=== PATIENT | female | born 1960 | race Caucasian/White ===

== ENCOUNTER 2018-07-18 11:55 | Inpatient (IN) | payer OTHER ==
[2018-07-18 12:20] LABS: ADD MAN DIFF? NO
[2018-07-18 12:21] LABS: WHITE BLOOD COUNT 14.9 10^3/ul (4.8-10.8)
[2018-07-18 12:21] LABS: ABNORMAL IP MESSAGE 1; BASOPHIL # 0.1 10^3/ul (0.0-0.1); BASOPHILS % 0.6 % (0.0-2.0); EOSINOPHILS # 0.2 10^3/ul (0.0-0.5); EOSINOPHILS % 1.6 % (0.0-7.0); HEMATOCRIT 47.5 % (37.0-47.0); HEMOGLOBIN 16.5 g/dl (12.0-16.0); LYMPHOCYTES # 1.5 10^3/ul (0.8-2.9); LYMPHOCYTES % 10.3 % (15.0-51.0); MEAN CORPUSCULAR HEMOGLOBIN 31.7 pg (29.0-33.0); MEAN CORPUSCULAR HGB CONC 34.7 g/dl (32.0-37.0); MEAN CORPUSCULAR VOLUME 91.2 fl (82.0-101.0); MONOCYTE # 1.7 10^3/ul (0.3-0.9); MONOCYTES % 11.1 % (0.0-11.0); NEUTROPHIL # 11.3 10^3/ul (1.6-7.5); NEUTROPHILS % 75.6 % (39.0-77.0); PLATELET COUNT 324 10^3/UL (140-415); RED BLOOD COUNT 5.21 10^6/ul (4.20-5.40); RED CELL DISTRIBUTION WIDTH 12.9 % (11.5-14.5)
[2018-07-18 12:22] LABS: POSITIVE DIFF @See below
[2018-07-18 12:32] LABS: HEMOGLOBIN A1C 13.5 % (0-5.9)
[2018-07-18 12:39] LABS: ALANINE AMINOTRANSFERASE 19 IU/L (13-69); ALBUMIN 4.6 g/dl (3.3-4.9); ALBUMIN/GLOBULIN RATIO 1.35; ALKALINE PHOSPHATASE 75 IU/L (42-121); ANION GAP 11 (5-13); ASPARTATE AMINO TRANSFERASE 15 IU/L (15-46); BILIRUBIN,INDIRECT 0.8 mg/dl (0-1.1); BILIRUBIN,TOTAL 0.8 mg/dl (0.2-1.3); BLOOD UREA NITROGEN 20 mg/dl (7-20); CALCIUM 10.3 mg/dl (8.4-10.2); CARBON DIOXIDE 19 mmol/L (21-31); CHLORIDE 105 mmol/L (97-110); CHOL/HDL RATIO 2.6 RATIO; CHOLESTEROL 136 mg/dl (100-200); CREATINE KINASE 49 IU/L (23-200); CREATININE 1.47 mg/dl (0.44-1.00); ETHANOL < 10.0 mg/dl (0-0); Estimated GFR 37 mL/min (>60); GLUCOSE 148 mg/dl (70-220); HDL CHOLESTEROL 52 mg/dl (37-92); LDL CHOLESTEROL,CALCULATED 57 mg/dl; POTASSIUM 3.8 mmol/L (3.5-5.1); SODIUM 135 mmol/L (135-144); TRIGLYCERIDES 137 mg/dl (0-149)
[2018-07-18 12:41] LABS: INR 0.91; PROTIME 12.4 Sec (11.9-14.9)
[2018-07-18 12:42] LABS: PARTIAL THROMBOPLASTIN TIME 28.1 Sec (23.0-35.0)
[2018-07-18 12:50] LABS: CK-MB 0.98 ng/ml (0.0-2.4); TROPONIN-I 0.026 ng/ml (0.000-0.120)
[2018-07-18] MEDS: SOD CHLORIDE 0.9% 1,000 ML IV ×2 (13:37)
[2018-07-18] MEDS: SOD CHLORIDE 0.9% 100 ML (13:38)
[2018-07-18] MEDS: IODIXANOL LOCM 100 ML BTL (13:38)
[2018-07-18] MEDS: ASPIRIN 81 MG TAB PO (14:54)
[2018-07-18] MEDS ORDERED: DOCUSATE SODIUM 100 MG CAP PO (15:30)
[2018-07-18] MEDS ORDERED: ZOLPIDEM 5 MG TAB PO (15:30)
[2018-07-18] MEDS ORDERED: HYDROCODONE/APAP (5/325) TAB PO (15:30)
[2018-07-18] MEDS ORDERED: ACETAMINOPHEN 325 MG TAB PO (15:30)
[2018-07-18] MEDS ORDERED: NACL 0.9% 3 ML SYG IV (15:30)
[2018-07-18] MEDS ORDERED: ONDANSETRON 4 MG INJ IV ×2 (15:30)
[2018-07-18] MEDS ORDERED: GLUCAGON 1 MG INJ IM (17:00)
[2018-07-18] MEDS ORDERED: morphine LIQ (10 MG/5 ML) CUP PO (17:00)
[2018-07-18] MEDS ORDERED: GLUCOSE GEL 15 GRAM TUBE BUCCAL (17:00)
[2018-07-18] MEDS ORDERED: DEXTROSE 50% 50 ML SYRINGE IV ×2 (17:00)
[2018-07-18] MEDS ORDERED: GLUCOSE GEL 15 GRAM TUBE PO ×2 (17:00)
[2018-07-18] MEDS: INSULIN ASPART [NOVOLOG] 3 ML PEN SC ×3 (18:00→20:58)
[2018-07-18] MEDS: CLOPIDOGREL 75 MG TAB PO (18:30)
[2018-07-18] MEDS: ATORVASTATIN 80 MG TAB PO (20:50)
[2018-07-18] MEDS: INSULIN GLARGINE [LANTus] (100 UNITS/ML) SYG SC (20:53)
[2018-07-19] MEDS: ACCU-CHEK XX (02:00)
[2018-07-19] MEDS: ACETAMINOPHEN 325 MG TAB PO (05:01)
[2018-07-19 05:15] LABS: ADD MAN DIFF? NO
[2018-07-19 05:19] LABS: BASOPHIL # 0.1 10^3/ul (0.0-0.1); BASOPHILS % 0.7 % (0.0-2.0); EOSINOPHILS # 0.3 10^3/ul (0.0-0.5); HEMATOCRIT 43.2 % (37.0-47.0); HEMOGLOBIN 14.8 g/dl (12.0-16.0); LYMPHOCYTES # 1.2 10^3/ul (0.8-2.9); LYMPHOCYTES % 17.8 % (15.0-51.0); MEAN CORPUSCULAR HEMOGLOBIN 31.2 pg (29.0-33.0); MEAN CORPUSCULAR HGB CONC 34.3 g/dl (32.0-37.0); MEAN CORPUSCULAR VOLUME 91.1 fl (82.0-101.0); MEAN PLATELET VOLUME 10.3 fl (7.4-10.4); MONOCYTE # 0.8 10^3/ul (0.3-0.9); NEUTROPHIL # 4.3 10^3/ul (1.6-7.5); NEUTROPHILS % 65.1 % (39.0-77.0); PLATELET COUNT 261 10^3/UL (140-415); RED BLOOD COUNT 4.74 10^6/ul (4.20-5.40); RED CELL DISTRIBUTION WIDTH 13.1 % (11.5-14.5)
[2018-07-19 05:19] LABS: WHITE BLOOD COUNT 6.7 10^3/ul (4.8-10.8)
[2018-07-19 05:39] LABS: ANION GAP 15 (5-13); BLOOD UREA NITROGEN 18 mg/dl (7-20); CALCIUM 9.5 mg/dl (8.4-10.2); CARBON DIOXIDE 18 mmol/L (21-31); CHLORIDE 104 mmol/L (97-110); CHOL/HDL RATIO 2.7 RATIO; CHOLESTEROL 110 mg/dl (100-200); CREATININE 0.57 mg/dl (0.44-1.00); Estimated GFR > 60 mL/min (>60); GLUCOSE 128 mg/dl (70-220); HDL CHOLESTEROL 40 mg/dl (37-92); LDL CHOLESTEROL,CALCULATED 44 mg/dl; MAGNESIUM 1.7 mg/dl (1.7-2.5); PHOSPHORUS 4.1 mg/dl (2.5-4.9); POTASSIUM 3.2 mmol/L (3.5-5.1); SODIUM 137 mmol/L (135-144); TRIGLYCERIDES 129 mg/dl (0-149)
[2018-07-19 05:54] LABS: FREE THYROXINE INDEX (Calc) 3.25 ug/ml (0.65-3.89); T3 UPTAKE 37.3 % (23.5-40.5); T4 (THYROXINE) 8.7 ug/dl (5.5-11.0)
[2018-07-19] MEDS: POTASSIUM CHLORIDE (SR) 20 MEQ TAB PO (06:22)
[2018-07-19] MEDS: CLOPIDOGREL 75 MG TAB PO (08:59)
[2018-07-19] MEDS: ASPIRIN 81 MG TAB PO (08:59)
[2018-07-19] MEDS: INSULIN ASPART [NOVOLOG] 3 ML PEN SC ×6 (09:17→18:00)
[2018-07-19] MEDS: ENOXAPARIN 40 MG/0.4 ML SYG SC (09:18)
[2018-07-19 18:27] LABS: ADD UMIC NO; UR ASCORBIC ACID NEGATIVE (NEGATIVE); UR BILIRUBIN (Dip) NEGATIVE (NEGATIVE); UR BLOOD (Dip) NEGATIVE (NEGATIVE); UR CLARITY CLEAR (CLEAR); UR COLOR YELLOW (YELLOW); UR GLUCOSE (Dip) NEGATIVE (NEGATIVE); UR KETONES (Dip) 1+ mg/dL (NEGATIVE); UR LEUKOCYTE ESTERASE (Dip) NEGATIVE Leu/ul (NEGATIVE); UR NITRITE (Dip) NEGATIVE (NEGATIVE); UR SPECIFIC GRAVITY (Dip) 1.023 (1.003-1.030); UR TOTAL PROTEIN (Dip) NEGATIVE (NEGATIVE); UR UROBILINOGEN (Dip) 1+ mg/dL (NEGATIVE)
[2018-07-19 18:47] LABS: AMPHETAMINE/METHAMPHETAMINE Negative (NEGATIVE); BARBITURATES Negative (NEGATIVE); BENZODIAZEPINES Negative (NEGATIVE); CANNABINOIDS Negative (NEGATIVE); COCAINE Negative (NEGATIVE)
[2018-07-19 18:59] LABS: OPIATES Positive (NEGATIVE)
== END 2018-07-19 18:40 | disposition home or self-care (01) | DRG 69 ==
LOC: E/R 11:55 → 6WM 15:20
DX: G45.9 Transient cerebral ischemic attack, unspecified (principal); E11.9 Type 2 diabetes mellitus without complications; Z86.73 Personal history of transient ischemic attack (TIA), and cerebral infarction without residual deficits
CPT/HCPCS: 36415; 70450; 70496; 70498; 70551; 71045; 80048; 80053; 80061; 80307; 81003; 82550; 82553; 82962; 83036; 83735; 84100; 84436; 84479; 84484; 85025; 85610; 85730; 92610; 93005; 93306; 97161; 99285-25